=== PATIENT | female | born 1975 | race Caucasian/White ===

== ENCOUNTER → 2023-09-14 14:04 | Outpatient (REF) | payer BC, SELFPAY | LOC: RAD 14:04 | PROVIDERS: ATTENDING PHYSICIAN Otolaryngology; FAMILY PHYSICIAN Nurse Practitioner Adult Health | DX: J40 Bronchitis, not specified as acute or chronic (principal) | CPT/HCPCS: 71046 ==

== ENCOUNTER → 2024-04-05 08:36 | Outpatient (REF) | payer BC, SELFPAY | LOC: WDC 08:36 | PROVIDERS: ATTENDING PHYSICIAN Registered Nurse | DX: Z12.31 Encounter for screening mammogram for malignant neoplasm of breast (principal) | CPT/HCPCS: 77063; 77067 ==

== ENCOUNTER → 2024-08-16 08:36 | Outpatient (REF) | payer BC, SELFPAY | LOC: RAD 08:36 | PROVIDERS: ATTENDING PHYSICIAN Nurse Practitioner Adult Health | DX: M81.0 Age-related osteoporosis without current pathological fracture (principal) | CPT/HCPCS: 77080 ==